=== PATIENT | male | born 1980 | race Caucasian/White ===

== ENCOUNTER 2020-02-19 20:06 | Emergency (ER) | payer BC ==
[~2020-02-19] VITALS: Ht 182.8 cm; Wt 108.9 kg
[~2020-02-19 20:06] MED LIST: Motrin,Rufen800 MG PO; PERCOCET 325 MG1 TA2 PO; PREDNISONE10 MG PO; ZOFRAN ODT4 MG PO
[2020-02-19] MEDS ORDERED: AUGMENTIN 875875 MG PO (22:42)
== END 2020-02-19 22:59 | disposition home or self-care (01) ==
LOC: ED 20:06
DX: S62.334A Displaced fracture of neck of fourth metacarpal bone, right hand, initial encounter for closed fracture (principal); S16.1XXA Strain of muscle, fascia and tendon at neck level, initial encounter; S09.90XA Unspecified injury of head, initial encounter; S81.851A Open bite, right lower leg, initial encounter; F17.200 Nicotine dependence, unspecified, uncomplicated; Z91.030 Bee allergy status; Z79.899 Other long term (current) drug therapy; Z90.49 Acquired absence of other specified parts of digestive tract; Y04.2XXA Assault by strike against or bumped into by another person, initial encounter; W54.0XXA Bitten by dog, initial encounter; Y93.89 Activity, other specified; Y92.89 Other specified places as the place of occurrence of the external cause; Y99.8 Other external cause status

== ENCOUNTER 2024-02-25 10:02 | Emergency (ER) | payer OTHER ==
[~2024-02-25] VITALS: Ht 182.8 cm; Wt 102.1 kg
[~2024-02-25 10:02] MED LIST changes: +AUGMENTIN 875875 MG PO
[2024-02-25] MEDS ORDERED: PREDNISONE50 MG PO (12:58)
[2024-02-25] MEDS ORDERED: CYCLOBENZAPRINE5 M3 PO (12:58)
[2024-02-25] MEDS ORDERED: Ketorolac Tromethamine 60 MG/2 ML VIAL IM ONE (13:00)
== END 2024-02-25 16:31 | disposition home or self-care (01) ==
LOC: ED 10:02
DX: M94.0 Chondrocostal junction syndrome [Tietze] (principal); Z91.030 Bee allergy status; W18.09XA Striking against other object with subsequent fall, initial encounter; Y93.89 Activity, other specified; Y92.89 Other specified places as the place of occurrence of the external cause; Y99.8 Other external cause status

== ENCOUNTER 2025-06-13 16:12 | Emergency (ER) | payer OTHER ==
[~2025-06-13] VITALS: Wt 104.3 kg
[~2025-06-13 16:12] MED LIST changes: +CYCLOBENZAPRINE5 M3 PO; +PREDNISONE50 MG PO
[2025-06-13 17:03] LABS: BILIRUBIN Negative (Negative); BLOOD Trace-Lysed (Negative); CLARITY Clear (Clear); COLOR Yellow (Yellow); KETONE Trace (Negative); LEUKO ESTERASE Negative (Negative); NITRITE Negative (Negative); PH 5.5 (4.5-8.0); SPECIFIC GRAVITY >= 1.030 (1.001-1.030); UROBILINOGEN 1.0 E.U./dl (0.0-1.0)
[2025-06-13 17:09] LABS: BASO # 0.1 10*3/uL (0.0-0.1); BASO % 0.7 % (0.0-1.0); EOS # 0.1 10*3/uL (0.0-0.4); EOS % 1.0 % (1.0-4.0); MEAN CELL VOLUME 93.4 fl (80.0-94.0); MEAN CORPUSCULAR HGB 31.7 pg (27.0-31.0); MEAN PLATELET VOLUME 9.9 fl (9.6-12.3); MONO # 0.6 10*3/uL (0.1-1.0); MONO % 7.6 % (3.0-9.0); NEUT # 5.6 10*3/uL (2.3-7.9); NEUT % 67.7 % (47.0-73.0); NUCLEATED RED BLOOD CELL 0.0 % (0.0-0.0); NUCLEATED RED BLOOD CELL 0.0 10*3/uL (0.0-0.0); PLATELET COUNT AUTOMATED 250 10*3/uL (130-400); RED CELL DISTRI WIDTH 12.8 % (0-14.5)
[2025-06-13 17:17] LABS: MUCOUS 1+
[2025-06-13 17:40] LABS: BUN 13 mg/dl (9-23); SGPT/ALT 16 U/L (5-49)
[2025-06-13] MEDS ORDERED: Ondansetron Hydrochloride 4 MG TAB SL ONE (17:45)
[2025-06-13] MEDS ORDERED: diphenhydrAMINE hydrochloride 50 MG/ML VIAL IM ONE (17:50)
[2025-06-13] MEDS ORDERED: METHOCARBAMOL 750 MG TAB PO ONE (17:50)
== END 2025-06-13 18:37 | disposition home or self-care (01) ==
LOC: ED 16:12
PROVIDERS: Internal Medicine
DX: R10.31 Right lower quadrant pain (principal); G44.209 Tension-type headache, unspecified, not intractable; R30.9 Painful micturition, unspecified; N50.811 Right testicular pain; Z91.030 Bee allergy status; Z79.899 Other long term (current) drug therapy